=== PATIENT | male | born 1960 | race Caucasian/White ===

== ENCOUNTER 2016-10-24 10:50 | Emergency (ER) | payer OTHER ==
[2016-10-24 10:51] VITALS: BMI 25.9
[2016-10-24 11:22] LABS: AUTOMATED BASOPHIL 0.9 % (0-2); AUTOMATED EOSINOPHIL 1.2 % (0-5); AUTOMATED LYMPH 28.5 % (17-44); AUTOMATED MONOCYTE 7.9 % (3-10); AUTOMATED NEUTROPHIL 61.5 % (45-76); MPV 7.5 fL (7.4-10.4)
[2016-10-24 11:29] VITALS: TEMP 98.6
[2016-10-24 11:38] LABS: BLOOD UREA NITROGEN 10 MG/DL (9-20); CALC CORRECTED 8.5 MG/DL (8.4-10.2); CALCIUM 8.4 MG/DL (8.4-10.2); CALCULATED OSMOLALITY 270 MOs/Kg (270-290); CHLORIDE 106 mEq/L (98-107); GLUCOSE 93 MG/DL (70-99); SODIUM LEVEL 141 mEq/L (137-146); TOTAL PROTEIN 6.8 G/DL (6.3-8.2)
[2016-10-24 11:41] LABS: PARTIAL THROMB. TIME 30.7 SEC (22-35); PT-INR 1.1
[2016-10-24 11:51] LABS: WBC/URINE TNTC (0-2)
[2016-10-24] MEDS ORDERED: DIPHENHYDRAMINE 50 MG/ML VIAL IV ONE (11:56)
[2016-10-24] MEDS ORDERED: DEXAMETHASONE PF 10 MG/1 ML VIAL IV ONE (11:56)
[2016-10-24] MEDS ORDERED: METOCLOPRAMIDE 10 MG/2 ML VIAL IV ONE (11:56)
--- NOTE | 2016-10-24 11:58 | EDPRACDOC ---
- General Information Chief Complaint: Chest Pain Stated Complaint: CHEST PAIN Time Seen by Provider: 10/24/16 11:44 Information Source: Patient Mode of Arrival: Wheelchair Home Medications: Home Medications Glipizide [Glipizide ER] 10 mg PO BID 12/21/15 Sitagliptin Phos/Metformin HCl [Janumet Xr 100-1,000 mg Tablet] 1 each PO .QEVENING W/MEAL 12/21/15 Pioglitazone HCl [Actos] 15 mg PO DAILY 10/24/16 Sulfamethoxazole/Trimethoprim [Bactrim Ds Tablet] 1 tab PO BID #10 tab 10/24/16 Allergies/Adverse Reactions: Allergies Allergy/AdvReac Type Severity Reaction Status Date / Time codeine [Codeine] Allergy Mild Nausea/Vomi Verified 10/24/16 09:28 ting - History of 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 PT WAS GETTING IV FLUIDS FOR POSSIBLE DEHYDRATION. PT HAS HEADACHE THAT STARTED A COUPLE OF DAYS AGO. PAIN SEVERE. + N/V. PT FEELS LIKE A WET BLANKET IS ON CHEST. ED Past Medical History - Patient Medical History Neurological History: Denies: Cerebrovascular Accident, Seizures Cardiac History: Denies: Coronary Artery Disease, Atrial Fibrillation Respiratory History: Denies: Asthma, COPD GI/ History: Denies: Renal Disease, Gastroesophageal Reflux Musculoskeletal History: Denies: Arthritis, Osteoarthritis Psychological History: Denies: Depression, Anxiety Systemic History: Reports: Diabetes. Denies: Cancer, Anemia - Family Medical History Reports: Hypertension (aunt, uncle), Diabetes (aunt and uncles), Cancer (father prostate cancer), Stroke (father). Denies: Cardiac Disorders - Social Medical History Smoking Status: Former smoker - Physical Exam Last recorded Vital Signs: Last Vital Signs Temp 98.6 F 10/24/16 11:00 Pulse 74 10/24/16 11:00 Resp 18 10/24/16 11:00 BP 144/76 10/24/16 11:00 Pulse Ox 98 10/24/16 11:00 Oxygen Pulse Oxygen Saturation 98 O2 Device Oxygen Flow Rate Fraction of Inspired Oxygen ( FIO2) - Action ASA given in the ED: Yes - Re-evaluation Re-evaluation 1 Re-evaluation Time: 13:39 feeling better - Results 10/24/16 11:08 10/24/16 11:08 WBC 6.7 xk/uL (3.8-10.8) 10/24/16 11:08 RBC 4.79 xM/uL (4.70-6.10) 10/24/16 11:08 Hgb 13.6 g/dL (14.0-18.0) L 10/24/16 11:08 Hct 40.8 % (42-52) L 10/24/16 11:08 MCV 85 fL (80-94) 10/24/16 11:08 MCH 28.4 pg (27-32) 10/24/16 11:08 MCHC 33.3 g/dl (33-36) 10/24/16 11:08 RDW 14.2 % (11.5-14.5) 10/24/16 11:08 Plt Count 215 xk/uL (130-400) 10/24/16 11:08 MPV 7.5 fL (7.4-10.4) 10/24/16 11:08 Neut % (Auto) 61.5 % (45-76) 10/24/16 11:08 Lymph % (Auto) 28.5 % (17-44) 10/24/16 11:08 [place] % (Auto) 7.9 % (3-10) 10/24/16 11:08 Eos % (Auto) 1.2 % (0-5) 10/24/16 11:08 Baso % (Auto) 0.9 % (0-2) 10/24/16 11:08 Absolute Neuts (auto) 4.09 xk/uL (1.7-8.2) 10/24/16 11:08 Absolute Lymphs (auto) 1.88 xk/uL (0.65-4.75) 10/24/16 11:08 PT 11.2 SEC (9.2-11.2) 10/24/16 11:08 INR 1.1 10/24/16 11:08 APTT 30.7 SEC (22-35) 10/24/16 11:08 Sodium 141 mEq/L (137-146) 10/24/16 11:08 Potassium 3.4 mEq/L (3.5-5.1) L 10/24/16 11:08 Chloride 106 mEq/L (98-107) 10/24/16 11:08 Carbon Dioxide 23 mMOL/L (22-33) 10/24/16 11:08 Anion Gap 15 mEq/L (8-16) 10/24/16 11:08 BUN 10 MG/DL (9-20) 10/24/16 11:08 Creatinine 0.70 MG/DL (0.66-1.25) 10/24/16 11:08 Estimated GFR (MDRD) > 60 mL/min (>=60) 10/24/16 11:08 Glucose 93 MG/DL (70-99) 10/24/16 11:08 Calculated Osmolality 270 MOs/Kg (270-290) 10/24/16 11:08 Calcium 8.4 MG/DL (8.4-10.2) 10/24/16 11:08 Corrected Calcium 8.5 MG/DL (8.4-10.2) 10/24/16 11:08 Total Bilirubin 0.6 MG/DL (0.2-1.3) 10/24/16 11:08 AST 12 IU/L (17-59) L 10/24/16 11:08 ALT 26 IU/L (21-72) 10/24/16 11:08 Alkaline Phosphatase 45 IU/L (38-126) 10/24/16 11:08 Total Protein 6.8 G/DL (6.3-8.2) 10/24/16 11:08 Albumin 3.9 G/DL (3.5-5.0) 10/24/16 11:08 Lab Results 10/24/16 10/24/16 10/24/16 11:08 11:08 11:08 WBC 6.7 RBC 4.79 Hgb 13.6 L Hct 40.8 L MCV 85 MCH 28.4 MCHC 33.3 RDW 14.2 Plt Count 215 MPV 7.5 Neut % (Auto) 61.5 Lymph % (Auto) 28.5 [place] % (Auto) 7.9 Eos % (Auto) 1.2 Baso % (Auto) 0.9 Absolute Neuts (auto) 4.09 Absolute Lymphs (auto) 1.88 PT 11.2 INR 1.1 APTT 30.7 Sodium 141 Potassium 3.4 L Chloride 106 Carbon Dioxide 23 Anion Gap 15 BUN 10 Creatinine 0.70 Estimated GFR (MDRD) > 60 Glucose 93 Calculated Osmolality 270 Calcium 8.4 Corrected Calcium 8.5 Total Bilirubin 0.6 AST 12 L ALT 26 Alkaline Phosphatase 45 Total Protein 6.8 Albumin 3.9 Laboratory Results - last 24 hr 10/24/16 10/24/16 10/24/16 11:08 11:08 11:08 WBC 6.7 RBC 4.79 Hgb 13.6 L Hct 40.8 L MCV 85 MCH 28.4 MCHC 33.3 RDW 14.2 Plt Count 215 MPV 7.5 Neut % (Auto) 61.5 Lymph % (Auto) 28.5 [place] % (Auto) 7.9 Eos % (Auto) 1.2 Baso % (Auto) 0.9 Absolute Neuts (auto) 4.09 Absolute Lymphs (auto) 1.88 PT 11.2 INR 1.1 APTT 30.7 Sodium 141 Potassium 3.4 L Chloride 106 Carbon Dioxide 23 Anion Gap 15 BUN 10 Creatinine 0.70 Estimated GFR (MDRD) > 60 Glucose 93 Calculated Osmolality 270 Calcium 8.4 Corrected Calcium 8.5 Total Bilirubin 0.6 AST 12 L ALT 26 Alkaline Phosphatase 45 Total Protein 6.8 Albumin 3.9 Laboratory Results 10/24/16 11:08 10/24/16 11:08 Decision Time to Discharge: 13:34 - Departure Yes I personally saw and evaluated the patient. Disposition: Home Condition: Stable Final Diagnosis: UTI (urinary tract infection) Qualifiers: Urinary tract infection type: acute cystitis Hematuria presence: without hematuria Qualified Code(s): N30.00 - Acute cystitis without hematuria Headache Qualifiers: Headache type: unspecified Headache chronicity pattern: acute headache Intractability: not intractable Qualified Code(s): R51 - Headache Chest pain Qualifiers: Chest pain type: unspecified Qualified Code(s): R07.9 - Chest pain, unspecified Instructions: Chest Pain (ED), Urinary Tract Infection in Men (ED), Chest Wall Pain, Headache Education/Counseling Given To: Patient Education/Counseling Given Regarding: Diagnosis Referrals: Deysi Collins MD [Primary Care Provider] - One Week Prescriptions: Sulfamethoxazole/Trimethoprim [Bactrim Ds Tablet] 1 tab PO BID #10 tab
[2016-10-24 11:59] LABS: NITRITE/URINE NEG (NEGATIVE); URINE OCCULT BLOOD 1+ (NEG/TRACE)
[2016-10-24 12:02] LABS: LEUKOCYTES/URINE 2+ (NEGATIVE)
--- NOTE | 2016-10-24 12:07 | DIRPT ---
CLINICAL DATA: Chest pain, presumed cardiac EXAM: PORTABLE CHEST 1 VIEW COMPARISON: 12/21/2015 FINDINGS: Normal heart size and mediastinal contours. Bronchitic markings at the bases are stable. No acute infiltrate or edema. No effusion or pneumothorax. IMPRESSION: Stable exam. No evidence of acute disease. Electronically Signed By: Talon Brooks M.D. On: 10/24/2016 12:04
--- NOTE | 2016-10-24 13:07 | DIRPT ---
CLINICAL DATA: Headache for 2 days with nausea and vomiting. EXAM: CT HEAD WITHOUT CONTRAST TECHNIQUE: Contiguous axial images were obtained from the base of the skull through the vertex without intravenous contrast. COMPARISON: 07/15/2011 FINDINGS: Skull and Sinuses:Negative for fracture or destructive process. Sub cm sclerotic focus in the high left parietal bone is stable. The visualized mastoids, middle ears, and imaged paranasal sinuses are clear. Visualized orbits: Negative. Brain: Normal. No evidence of acute infarction, hemorrhage, hydrocephalus, or mass lesion/mass effect. IMPRESSION: Negative and stable head CT. Electronically Signed By: Talon Brooks M.D. On: 10/24/2016 13:05
[2016-10-24 13:38] VITALS: BP 137/72; PULSE 78
[2016-10-24] MEDS ORDERED: ASPIRIN (CHEWABLE) 81 MG TAB PO ONE (13:38)
[2016-10-24] MEDS: TRIMETHOPRIM-SULFAMETHOXAZOLE TAB PO ONE ×2 (13:44→13:45)
== END 2016-10-24 13:50 | disposition home or self-care (01) ==
LOC: ED 10:50
DX: N30.00 Acute cystitis without hematuria (principal); R51 Headache
CPT/HCPCS: 36415; 70450; 71010; 80053; 81001; 83880; 84484; 85025; 85610; 85730; 87077; 87086; 87186; 93005; 96374; 96375; 99284; J1100; J1200; J2765; J3490

== ENCOUNTER 2016-10-29 08:00 | Emergency (ER) | payer OTHER ==
[2016-10-29 08:00] VITALS: BMI 25.9
[2016-10-29 08:14] VITALS: TEMP 98.5
[2016-10-29] MEDS ORDERED: MORPHINE 4 MG/ML INJECTION IV ONE (08:44)
[2016-10-29] MEDS ORDERED: ONDANSETRON HCL 4 MG/2 ML VIAL IV STA (08:44)
--- NOTE | 2016-10-29 08:45 | EDPRACDOC ---
- General Chief Complaint: Head Injury Stated Complaint: FALL (HEAD INJURY) Time Seen by Provider: 10/29/16 08:31 Information Source: Patient, Family - History of Present Illness Onset: yesterday HPI: PT PRESENTS AFTER FALL W/ SYNCOPE AND HEAD INJURY YESTERDAY MORNING. FOUND ON THE GROUND BY HIS . HE HAS HAD PERSISTENT HEADACHE SINCE. Pain Severity: Reports: Moderate (DIFFUSE HEADACHE) Injuries/Pain Location: Reports: head Reason for Fall: Reports: unknown Loss of Consciousness: unsure Associated Symptoms (Fall): Reports: confusion, headache, nausea/vomiting Allergies/Adverse Reactions: Allergies codeine [Codeine] Allergy (Mild, Verified 10/29/16 08:11) Nausea/Vomiting Home Medications: Ambulatory Orders Glipizide [Glipizide ER] 10 mg PO BID 12/21/15 Sitagliptin Phos/Metformin HCl [Janumet Xr 100-1,000 mg Tablet] 1 each PO .QEVENING W/MEAL 12/21/15 Pioglitazone HCl [Actos] 15 mg PO DAILY 10/24/16 Sulfamethoxazole/Trimethoprim [Bactrim Ds Tablet] 1 tab PO BID #10 tab 10/24/16 Ondansetron HCl [Zofran] 4 mg PO Q6H PRN #15 tab 10/29/16 Oxycodone HCl [Roxicodone] 5 mg PO Q4-6H PRN #15 tablet 10/29/16 ED Past Medical History - History Reviewed Yes Nurses notes reviewed and agree except as marked - Patient Medical History Neurological History: Denies: Cerebrovascular Accident, Seizures Cardiac History: Denies: Coronary Artery Disease, Atrial Fibrillation Respiratory History: Denies: Asthma, COPD GI/ History: Denies: Renal Disease, Gastroesophageal Reflux Musculoskeletal History: Denies: Arthritis, Osteoarthritis Psychological History: Denies: Depression, Anxiety Systemic History: Reports: Diabetes. Denies: Cancer, Anemia - Family Medical History Reports: Hypertension (aunt, uncle), Diabetes (aunt and uncles), Cancer (father prostate cancer), Stroke (father). Denies: Cardiac Disorders - Social Medical History Smoking Status: Never smoker Lives With: Spouse Lives In: Home EDM Review of Systems - Review of Systems ROS Negative Except as Marked: Yes All systems reviewed and were negative except as marked Constitutional: negative: Fever Respiratory: negative: Shortness of Breath Cardiovascular: negative: Chest Pain Gastrointestinal: Nausea. negative: Pain, Vomiting Neurological: Headache Musculoskeletal: Back (LUMBAR), Neck - Physical Exam Constitutional: Alert Oriented to: Time, Person, Place Last recorded Vital Signs: Last Vital Signs Temp 98.5 F 10/29/16 08:11 Pulse 81 10/29/16 08:11 Resp 18 10/29/16 08:11 BP 126/73 10/29/16 08:11 Pulse Ox 97 10/29/16 08:11 Oxygen Pulse Oxygen Saturation 97 O2 Device Room Air Oxygen Flow Rate Fraction of Inspired Oxygen ( FIO2) - HEENT Head: negative: Deformity, Laceration Eye Exam: negative: Conjunctival Injection, Pale Conjunctiva Oropharynx: negative: Membranes Dry Nose: negative: Congestion, Discharge Neck: negative: Limited ROM ED Injury/Fall Exam - Physical Exam Head Injury: negative: active bleeding - Rulo Coma Score Best Eye Response (Rulo): (4) open spontaneously Best Verbal Response (Rulo): (5) oriented Best Motor Response (Rulo): (6) obeys commands Jabier Total: 15 - Results 10/29/16 08:35 10/29/16 08:35 POC Capillary Glucose 110 MG/DL (70-99) H 10/29/16 08:10 Lab Results 10/29/16 08:10 POC Capillary Glucose 110 H - EKG EKG #1 EKG Time: 08:21 -: Yes EKG interpreted by me Rate: bpm: 75 [place]: LAD Rhythm: NSR Block: None ST: Nonsp Decision Time to Discharge: 10:05 - Departure Yes I personally saw and evaluated the patient. Disposition: Home Condition: Stable Final Diagnosis: Concussion, Headache Instructions: Headache, Headache,FAQ's, Concussion (ED) Education/Counseling Given To: Patient, Family Member Education/Counseling Given Regarding: Diagnosis, Treatment, Prognosis, Follow Up Referrals: Jose Alfredo Anaya PA [Primary Care Provider] - Call for Appointment Prescriptions: Ondansetron HCl [Zofran] 4 mg PO Q6H PRN #15 tab PRN Reason: Nausea/Vomiting Oxycodone HCl [Roxicodone] 5 mg PO Q4-6H PRN #15 tablet PRN Reason: Breakthrough Pain
[2016-10-29 09:09] LABS: PARTIAL THROMB. TIME 30.1 SEC (22-35); PT-INR 1.1
[2016-10-29 09:12] LABS: AUTOMATED BASOPHIL 0.7 % (0-2); AUTOMATED EOSINOPHIL 1.4 % (0-5); AUTOMATED LYMPH 31.1 % (17-44); AUTOMATED MONOCYTE 6.4 % (3-10); AUTOMATED NEUTROPHIL 60.4 % (45-76); MPV 7.8 fL (7.4-10.4)
[2016-10-29 09:19] LABS: BLOOD UREA NITROGEN 16 MG/DL (9-20); CALCIUM 9.2 MG/DL (8.4-10.2); CALCULATED OSMOLALITY 270 MOs/Kg (270-290); CHLORIDE 104 mEq/L (98-107); CPK TOTAL WITH POSSIBLE MB 71 IU/L (55-170); GLUCOSE 122 MG/DL (70-99); SODIUM LEVEL 139 mEq/L (137-146); TOTAL PROTEIN 7.1 G/DL (6.3-8.2)
--- NOTE | 2016-10-29 09:42 | DIRPT ---
CLINICAL DATA: Fell yesterday afternoon. Found on the for. Headache and low back pain. EXAM: CHEST 2 VIEW COMPARISON: 10/24/2015 FINDINGS: Artifact overlies the chest. Heart size is normal. Mediastinal shadows are normal. The lungs are clear. The vascularity is normal. No effusions. No acute bone findings. IMPRESSION: No active cardiopulmonary disease. Electronically Signed By: Woody Melvin M.D. On: 10/29/2016 09:39
--- NOTE | 2016-10-29 09:46 | DIRPT ---
CLINICAL DATA: Fell yesterday afternoon, found by , does not know how he fell, lower back pain, initial encounter EXAM: LUMBAR SPINE - COMPLETE 4+ VIEW COMPARISON: None; correlation CT abdomen and pelvis 01/07/2016 FINDINGS: 5 [id number] lumbar vertebra. Suspect mild osseous demineralization. Vertebral body and disc space heights maintained. Tiny superior endplate spur L3. No acute fracture, subluxation or bone destruction. No spondylolysis. SI joints preserved. IMPRESSION: No acute lumbar spine abnormalities. Electronically Signed By: Woody Ames M.D. On: 10/29/2016 09:43
--- NOTE | 2016-10-29 10:01 | DIRPT ---
CLINICAL DATA: Status post fall, head injury, headache EXAM: CT HEAD WITHOUT CONTRAST CT CERVICAL SPINE WITHOUT CONTRAST TECHNIQUE: Multidetector CT imaging of the head and cervical spine was performed following the standard protocol without intravenous contrast. Multiplanar CT image reconstructions of the cervical spine were also generated. COMPARISON: 10/24/2016 FINDINGS: CT HEAD FINDINGS There is no evidence of mass effect, midline shift or extra-axial fluid collections. There is no evidence of a space-occupying lesion or intracranial hemorrhage. There is no evidence of a cortical-based area of acute infarction. The ventricles and sulci are appropriate for the patient's age. The basal cisterns are patent. Visualized portions of the orbits are unremarkable. There is a small left maxillary sinus mucous retention cyst. The osseous structures are unremarkable. CT CERVICAL SPINE FINDINGS The alignment is anatomic. The vertebral body heights are maintained. There is no acute fracture. There is 1-2 mm of retrolisthesis of C4 on C5. The prevertebral soft tissues are normal. The intraspinal soft tissues are not fully imaged on this examination due to poor soft tissue contrast, but there is no gross soft tissue abnormality. There is degenerative disc disease at C7-T1. The remainder the disc spaces are relatively well preserved. There is left uncovertebral degenerative change at C3-4 resulting in left foraminal narrowing. There is a broad-based disc bulge at C4-5 with bilateral uncovertebral degenerative changes and foraminal narrowing. There is right uncovertebral degenerative change at C5-6 resulting in mild right foraminal narrowing. There is bilateral uncovertebral degenerative change at C6-7, right greater than left resulting in right foraminal narrowing. The visualized portions of the lung apices demonstrate no focal abnormality. IMPRESSION: 1. No acute intracranial pathology. 2. No acute osseous injury of the cervical spine. Electronically Signed By: Vivian Hoyos On: 10/29/2016 09:58
[2016-10-29 10:21] VITALS: BP 127/74; PULSE 60
== END 2016-10-29 10:21 | disposition home or self-care (01) ==
LOC: ED 08:00
DX: S06.0X9A Concussion with loss of consciousness of unspecified duration, initial encounter (principal); W19.XXXA Unspecified fall, initial encounter; Y93.9 Activity, unspecified
CPT/HCPCS: 36415; 70450; 71020; 72110; 72125; 80053; 82550; 82962; 84484; 85025; 85610; 85730; 93005; 96374; 96375; 99284; J2270; J2405

== ENCOUNTER 2016-11-10 16:03 | Inpatient (IN) | payer OTHER ==
[2016-11-10 16:04] VITALS: BMI 25.9
--- NOTE | 2016-11-10 17:02 | DIRPT ---
CLINICAL DATA: Sepsis. EXAM: PORTABLE CHEST 1 VIEW COMPARISON: 10/29/2016. FINDINGS: Mediastinum hilar structures normal. Stable cardiomegaly. No focal infiltrate. No pleural effusion or pneumothorax. No acute bony abnormality. IMPRESSION: 1. Stable cardiomegaly. 2. No acute pulmonary disease. Electronically Signed By: Myron Allen On: 11/10/2016 17:00
[2016-11-10 17:26] LABS: AUTOMATED BASOPHIL 0.4 % (0-2); AUTOMATED EOSINOPHIL 0.3 % (0-5); AUTOMATED LYMPH 10.4 % (17-44); AUTOMATED MONOCYTE 2.7 % (3-10); AUTOMATED NEUTROPHIL 86.2 % (45-76); MPV 8.1 fL (7.4-10.4)
[2016-11-10 17:42] LABS: PARTIAL THROMB. TIME 22.4 SEC (22-35); PT-INR 1.2
--- NOTE | 2016-11-10 17:46 | EDPRACDOC ---
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 CONFUSED AND LETHARGIC. LAST SEEN IN THE AM, NORMAL AT THAT TIME. FAMILY DENIES DRUG OR ALCOHOL USE. ED Past Medical History - History Reviewed Information Unobtainable: Yes Unable to obtain information due to patient condition - Patient Medical History Neurological History: Denies: Cerebrovascular Accident, Seizures Cardiac History: Denies: Coronary Artery Disease, Atrial Fibrillation Respiratory History: Denies: Asthma, COPD GI/ History: Denies: Renal Disease, Gastroesophageal Reflux Musculoskeletal History: Denies: Arthritis, Osteoarthritis Psychological History: Denies: Depression, Anxiety Systemic History: Reports: Diabetes. Denies: Cancer, Anemia - Family Medical History Reports: Hypertension (aunt, uncle), Diabetes (aunt and uncles), Cancer (father prostate cancer), Stroke (father). Denies: Cardiac Disorders - Social Medical History Smoking Status: Never smoker EDM Review of Systems - Review of Systems ROS Unobtainable: Yes Review of systems cannot be obtained due to the patient's medical condition - Physical Exam Constitutional: Alert, Somnolent, Other (OPENS EYES AND RESPONDS TO CONVERSATION OF PEOPLE THAT HE KNOWS.) Oriented to: Person, Unable to Test Last recorded Vital Signs: Last Vital Signs Temp 97.9 F 11/10/16 16:27 Pulse 94 11/10/16 16:27 Resp 16 11/10/16 16:27 BP 148/74 11/10/16 16:27 Pulse Ox 95 11/10/16 16:27 Oxygen Pulse Oxygen Saturation 95 O2 Device Room Air Oxygen Flow Rate Fraction of Inspired Oxygen ( FIO2) - HEENT Head: Normal Eye Exam: negative: Pale Conjunctiva, Scleral Icterus Oropharynx: negative: Membranes Dry Nose: No Symptoms Reported Neck: Normal. negative: Edema, Limited ROM, Lymphadenopathy, Meningeal Signs - Respiratory/Cardiovascular Respiratory: Normal - CTA Cardiovascular: Normal - GI Auscultation: Normal Palpation: Normal Tenderness: Non tender - Musculoskeletal Back: Normal Extremities: Normal - Integumentary Skin: Cool, Dry - Neurologic Memory Impaired: Unable to Test Motor Function: Other (MOVES ALL 4 EST) Mood Description: Flat - Results 11/10/16 17:08 11/10/16 17:20 WBC 15.4 xk/uL (3.8-10.8) H 11/10/16 17:08 RBC 5.69 xM/uL (4.70-6.10) 11/10/16 17:08 Hgb 16.0 g/dL (14.0-18.0) 11/10/16 17:08 Hct 48.7 % (42-52) 11/10/16 17:08 MCV 86 fL (80-94) 11/10/16 17:08 MCH 28.1 pg (27-32) 11/10/16 17:08 MCHC 32.9 g/dl (33-36) L 11/10/16 17:08 RDW 14.6 % (11.5-14.5) H 11/10/16 17:08 Plt Count 166 xk/uL (130-400) 11/10/16 17:08 MPV 8.1 fL (7.4-10.4) 11/10/16 17:08 Neut % (Auto) 86.2 % (45-76) H 11/10/16 17:08 Lymph % (Auto) 10.4 % (17-44) L 11/10/16 17:08 [place] % (Auto) 2.7 % (3-10) L 11/10/16 17:08 Eos % (Auto) 0.3 % (0-5) 11/10/16 17:08 Baso % (Auto) 0.4 % (0-2) 11/10/16 17:08 Absolute Neuts (auto) 13.24 xk/uL (1.7-8.2) H 11/10/16 17:08 Absolute Lymphs (auto) 1.54 xk/uL (0.65-4.75) 11/10/16 17:08 Lab Results 11/10/16 17:08 WBC 15.4 H RBC 5.69 Hgb 16.0 Hct 48.7 MCV 86 MCH 28.1 MCHC 32.9 L RDW 14.6 H Plt Count 166 MPV 8.1 Neut % (Auto) 86.2 H Lymph % (Auto) 10.4 L [place] % (Auto) 2.7 L Eos % (Auto) 0.3 Baso % (Auto) 0.4 Absolute Neuts (auto) 13.24 H Absolute Lymphs (auto) 1.54 - EKG EKG #1 EKG Time: 16:31 -: Yes EKG interpreted by me Rate: bpm: 93 [place]: LAD Rhythm: NSR Block: None Hypertrophy: None ST: Normal - Diagnostic Imaging Chest Image interpreted by: Radiologist Patient Name: BERTIN KANG LOC: ED : 1960 AGE: 56 Order Date:11/10/16 Date of Service:03/21 Report # [id number] Ord Physician: Jesusita Osuna MD Exam # [id number] Emergency Physician: Jesusita Osuna MD Exam(s): [id number] RAD/DG CHEST PORTABLE CLINICAL DATA: Sepsis. EXAM: PORTABLE CHEST 1 VIEW COMPARISON: 10/29/2016. FINDINGS: Mediastinum hilar structures normal. Stable cardiomegaly. No focal infiltrate. No pleural effusion or pneumothorax. No acute bony abnormality. IMPRESSION: 1. Stable cardiomegaly. 2. No acute pulmonary disease. Electronically Signed By: Myron Allen On: 11/10/2016 17:00 Electronically Signed By: Myron Allen MD Electronically Signed Date/Time: 702 Dictate Date/Time: 11/10/16 165 Technologist: Mirlande Meyers Transcribed By: Will Transcribed Date/Time: 11/10/16 1700 Head Image interpreted by: Radiologist Patient Name: BERTIN KANG LOC: ED : 1960 AGE: 56 Order Date:11/10/16 Date of Service:03/21 Report # [id number] Ord Physician: Jesusita Osuna MD Exam # [id number] Emergency Physician: Jesusita Osuna MD Exam(s): [id number] CT/CT HEAD W/O CM CLINICAL DATA: Fall in bathroom today. Loss of consciousness. Altered mental status. Initial encounter. EXAM: CT HEAD WITHOUT CONTRAST TECHNIQUE: Contiguous axial images were obtained from the base of the skull through the vertex without intravenous contrast. COMPARISON: 10/29/2016 FINDINGS: No evidence of intracranial hemorrhage, brain edema, or other signs of acute infarction. No evidence of intracranial mass lesion or mass effect. No abnormal extraaxial fluid collections identified. Ventricles are normal in size. No skull abnormality identified. IMPRESSION: Negative noncontrast head CT. Electronically Signed By: Hussein Fletcher M.D. On: 11/10/2016 18:34 Electronically Signed By: Hussein Fletcher MD Electronically Signed Date/Time: [id number] Dictate Date/Time: 11/10/161830 Technologist: Ana Paula Orozco Transcribed By: Will Transcribed Date/Time: 11/10/16 1834 - Departure Disposition: Admit IP To This Hospital Final Diagnosis: Altered mental status, Urinary tract infection Instructions: Weakness (ED), Urinary Tract Infection in Men (ED), Dysuria Education/Counseling Given To: Patient, Family Member Education/Counseling Given Regarding: Diagnosis, Treatment, Prognosis Referrals: Jose Alfredo Anaya PA [Primary Care Provider] - One Week Prescriptions: No Action Sitagliptin Phos/Metformin HCl [Janumet Xr 100-1,000 mg Tablet] 1 tab PO .QEVENING W/MEAL Glipizide [Glipizide ER] 10 mg PO BID Pioglitazone HCl [Actos] 15 mg PO DAILY Decision to Admit Time: 19:47 Decision to admit date: 11/10/16 Decision to admit: from ED - Physician Consulted Hospitalist Time Called: 19:34 Provider Called: Jules Kelley Time Account Development Specialist Returned Call: 19:47
[2016-11-10 17:56] LABS: BLOOD UREA NITROGEN 12 MG/DL (9-20); CALCIUM 9.4 MG/DL (8.4-10.2); CALCULATED OSMOLALITY 275 MOs/Kg (270-290); CHLORIDE 105 mEq/L (98-107); CPK TOTAL WITH POSSIBLE MB 458 IU/L (55-170); GLUCOSE 94 mg/dL (70-99); SODIUM LEVEL 143 mEq/L (137-146); TOTAL PROTEIN 7.4 G/DL (6.3-8.2)
[2016-11-10 18:11] LABS: ETOH-MGDL < 10 mg/dL
--- NOTE | 2016-11-10 18:36 | DIRPT ---
CLINICAL DATA: Fall in bathroom today. Loss of consciousness. Altered mental status. Initial encounter. EXAM: CT HEAD WITHOUT CONTRAST TECHNIQUE: Contiguous axial images were obtained from the base of the skull through the vertex without intravenous contrast. COMPARISON: 10/29/2016 FINDINGS: No evidence of intracranial hemorrhage, brain edema, or other signs of acute infarction. No evidence of intracranial mass lesion or mass effect. No abnormal extraaxial fluid collections identified. Ventricles are normal in size. No skull abnormality identified. IMPRESSION: Negative noncontrast head CT. Electronically Signed By: Hussein Fletcher M.D. On: 11/10/2016 18:34
[2016-11-10 18:46] LABS: ALL NEG? NO
[2016-11-10 18:59] LABS: LEUKOCYTES/URINE 2+ (NEGATIVE); NITRITE/URINE POS (NEGATIVE); RBC/URINE TNTC (0-2); URINE OCCULT BLOOD 3+ (NEG/TRACE); WBC/URINE TNTC (0-2)
[2016-11-10 19:03] LABS: MDMA* NEG (NEGATIVE); METHAMPHETAMINES NEG (NEGATIVE); OXYCODONE NEG (NEGATIVE)
[2016-11-10] MEDS ORDERED: NS 1,000 ML IV ONE ×2 (19:33)
[2016-11-10] MEDS ORDERED: ALBUTEROL 0.083% 3 ML NEB NEB PRN (21:00)
[2016-11-10] MEDS ORDERED: Levofloxacin 500 mg/100 ml D5W 500 MG/100 ML RTU IV SCH (21:00)
[2016-11-10] MEDS ORDERED: GLUCOSE (ORAL GEL) 15 GM TUBE PO PRN (21:00)
[2016-11-10] MEDS ORDERED: ACETAMINOPHEN 325 MG/TAB TABLET PO PRN (21:00)
[2016-11-10] MEDS ORDERED: ONDANSETRON HCL 4 MG/2 ML VIAL IV PRN (21:00)
[2016-11-10] MEDS ORDERED: DEXTROSE 25 GM/50 ML PFS IV PRN (21:00)
[2016-11-10] MEDS ORDERED: GLUCAGON 1 MG VIAL SQ PRN (21:00)
--- NOTE | 2016-11-10 21:06 | HISTPHYS ---
- Chief Complaint Found down - History of Present Illness This is a 56-year-old male with history of type 2 diabetes who is being admitted to the hospital due to severe urinary tract infection, which was diagnosed here in the emergency department tonight after he was brought to the hospital via EMS after his found him down. 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 Similarly, she came home from work this afternoon, and found that he had wet the bed, does a trail of urine to the bathroom and she found him on the ground with a decreased level of consciousness at home. She mentions that when he last fell a couple of months ago, he was diagnosed with a concussion. He has some headache on a daily basis as result of that, but since the headache got worse he has been to his usual state of health. The patient is currently with some decreased level of conscious, but he denies any chest pain, headache or shortness of breath. Patient's provides rest of the history and review of systems, saying that he has not had any dizziness, lightheadedness, syncope, seizures, fevers, chills , shortness of breath, chest pain, nausea, vomiting, changes in bowel or bladder habits, changes in weight or any sick contacts. No new medications. - Medical History Cardiac History: Denies: Coronary Artery Disease, Atrial Fibrillation Respiratory History: Denies: Asthma, COPD GI/ History: Denies: Renal Disease, Gastroesophageal Reflux Musculoskeletal History: Denies: Arthritis, Osteoarthritis Systemic History: Reports: Diabetes. Denies: Cancer, Anemia Neurological History: Denies: Cerebrovascular Accident, Seizures Psychological History: Denies: Depression, Anxiety - Medictions/Allergies Allergies codeine [Codeine] Allergy (Mild, Verified 11/10/16 16:38) Nausea/Vomiting Home Medications Glipizide [Glipizide ER] 10 mg PO BID 12/21/15 Sitagliptin Phos/Metformin HCl [Janumet Xr 100-1,000 mg Tablet] 1 tab PO .QEVENING W/MEAL 12/21/15 Pioglitazone HCl [Actos] 15 mg PO DAILY 10/24/16 - Family History Reports: Hypertension (aunt, uncle), Diabetes (aunt and uncles), Cancer (father prostate cancer), Stroke (father). Denies: Cardiac Disorders - Social History Smoking Status: Never smoker - Review of Systems Yes All systems reviewed and were negative except as marked (And as mentioned in the history of present illness above.) - Physical Exam Vital Signs: Initial Vitals Temperature 97.9 F 11/10/16 16:27 Pulse Rate 94 11/10/16 16:27 Respiratory Rate 16 11/10/16 16:27 Blood Pressure 148/74 11/10/16 16:27 Pulse Oxygen Saturation 95 11/10/16 16:27 Exam: Decreased level of consciousness, but moving all extremities and able to answer questions appropriately. Not very clear on history, though. - HEENT Head: Normal (normocephalic,atraumatic, trachea midline) Eye: Normal (EOMI, Sclera white) Oropharynx: Normal (moist) Nose: No Symptoms Reported (without discharge or bleeding) Respiratory: Normal - CTA (Clear to auscultation bilaterally, no wheezing,rales or rhonchi. No use of accessory muscles) Cardiovascular: Normal (RRR, no murmurs, rubs or gallops) - GI Palpation: Normal (soft, non distended and nontender) - His groin was examined in the presence of his and nursing staff since he was recently treated for a groin abscess, the area is very benign without any signs of infection. - Musculoskeletal Extremities: Normal (normal tone, no cyanosis or edema) - Focused CV Perfusion Exam Vital Signs: Last Vital Signs Temp 97.8 F 11/10/16 17:45 Pulse 96 11/10/16 18:35 Resp 18 11/10/16 18:35 BP 144/83 11/10/16 18:35 Pulse Ox 95 11/10/16 18:35 - Lab Results Laboratory Tests 11/10/16 11/10/16 11/10/16 17:08 17:08 17:20 WBC 15.4 H Hgb 16.0 Hct 48.7 Plt Count 166 INR 1.2 Potassium 3.8 BUN 12 Creatinine 0.70 Creatine Kinase 458 H Troponin I < 0.01 Urine RBC Urine WBC Urine Bacteria 11/10/16 18:35 WBC Hgb Hct Plt Count INR Potassium BUN Creatinine Creatine Kinase Troponin I Urine RBC Tntc H Urine WBC Tntc H Urine Bacteria 4+ H - Diagnostic Findings Chest x-ray and CT scan of the head were obtained tonight, they are unremarkable for any acute processes. - Assessment (1) Urinary tract infection N39.0 - URINARY TRACT INFECTION, SITE NOT SPECIFIED Acute Patient was apparently treated as an outpatient earlier this month for urinary tract infection, on review of this culture data, he has pansensitive E coli. As such , he will be treated empirically with IV Rocephin, urine culture will be followed up on in this setting. He is a patient of Dr. bautista well, it is curious that this patient seems to be having recurrent urinary tract infection, consideration could be given for follow-up urological investigation to rule out any nidus of recurrent UTIs. This can likely be done as an outpatient if the patient improves clinically. (2) Altered mental status R41.82 - ALTERED MENTAL STATUS, UNSPECIFIED Acute Likely due to urinary tract infection. No intracranial pathology found (3) Diabetes mellitus E11.9 - TYPE 2 DIABETES MELLITUS WITHOUT COMPLICATIONS Acute Qualifiers: Diabetes mellitus type: type 2 Diabetes mellitus complication status: with skin complications Diabetes mellitus complication detail: with other skin complication Qualified Code(s): E11.628 - Type 2 diabetes mellitus with other skin complications Since the patient is quite altered I doubt that he will have any p.o. intake, I have discontinued his oral diabetic medications. Will check hemoglobin A1c, and place him on sliding scale insulin. Diabetic diet when eating.
[2016-11-10] MEDS: REGULAR INSULIN 100 UNITS/ML - 3 ML VIAL SQ SCH (22:11)
[2016-11-10] MEDS: CEFTRIAXONE 1 GM in D5W 100 ML IV SCH (22:15)
[2016-11-10] MEDS ORDERED: Vaccine Screening Complete SCH (23:00)
[2016-11-11] MEDS: NS 1,000 ML IV SCH ×4 (03:52→17:44)
[2016-11-11] MEDS: REGULAR INSULIN 100 UNITS/ML - 3 ML VIAL SQ SCH ×4 (06:07→21:32)
[2016-11-11 07:15] LABS: MPV 7.6 fL (7.4-10.4)
[2016-11-11 07:35] LABS: BLOOD UREA NITROGEN 11 MG/DL (9-20); CALCIUM 8.7 MG/DL (8.4-10.2); CALCULATED OSMOLALITY 270 MOs/Kg (270-290); CHLORIDE 109 mEq/L (98-107); GLUCOSE 98 mg/dL (70-99); SODIUM LEVEL 141 mEq/L (137-146)
--- NOTE | 2016-11-11 16:15 | GENMEDPROG ---
Chief Complaint: Still looks very ill. Weak and poorly ambulatory Notes Reviewed: Yes: Events from last night noted and discussed with Clinical Staff Current Medication List: Reviewed Currently: Reports: Abdominal Pain. Denies: Cough, Wheezing, TRIPP, SOB, Sputum, Nausea and Vomiting - Physical Examination Vital Signs and I&O: Last Vital Signs Temp 98 F 11/11/16 14:10 Pulse 92 11/11/16 14:10 Resp 18 11/11/16 14:10 BP 128/70 11/11/16 14:10 Pulse Ox 92 11/11/16 14:10 Oxygen Pulse Oxygen Saturation 92 O2 Device Room Air Oxygen Flow Rate Fraction of Inspired Oxygen ( FIO2) Intake & Output 11/08/16 11/09/16 11/10/16 11/11/16 23:59 23:59 23:59 23:59 Intake Total 1000 2460 Output Total 1575 Balance 1000 885 Patient's weight 96.814 kg General: Alert, Oriented x3, Cooperative, Mild distress. negative: Well appearing (Acutely ill-appearing) HEENT: Normal, PERRLA, EOMI, Anicteric Sclera Neck: Non-tender, Full range of motion, Normal Trachea alignment, Normal inspection. negative: JVD Lymphatics: Normal. negative: Adenopathy, Inguinal Erythema Respiratory: Normal - CTA (Clear to auscultation bilaterally, no wheezing,rales or rhonchi. No use of accessory muscles) Cardiovascular: Regular rate and rhythm, No Gallops,Rubs/Murmurs GI: Normal bowel sounds, Soft, Non tender, No hepatospenomegaly Extremities/Musculoskeletal: Normal pulses. negative: Tenderness, Swelling, Edema Skin: Warm,Dry and Intact, No rashes, No breakdown, No significant lesion Neurological: Normal Steady Gait, Normal speech, Strength at 5/5 X4 ext, Normal tone Psych/Mental Status: Appropriate, Normal Affect, Cooperative Lab/DI/Studies Reviewed: Laboratory Results - last 24 hr 11/10/16 11/10/16 11/10/16 17:08 17:08 17:08 WBC 15.4 H RBC 5.69 Hgb 16.0 Hct 48.7 MCV 86 MCH 28.1 MCHC 32.9 L RDW 14.6 H Plt Count 166 MPV 8.1 Neut % (Auto) 86.2 H Lymph % (Auto) 10.4 L [place] % (Auto) 2.7 L Eos % (Auto) 0.3 Baso % (Auto) 0.4 Absolute Neuts (auto) 13.24 H Absolute Lymphs (auto) 1.54 PT 12.2 H INR 1.2 APTT 22.4 Sodium Potassium Chloride Carbon Dioxide Anion Gap BUN Creatinine Estimated GFR (MDRD) Glucose POC Capillary Glucose Hemoglobin A1c Calculated Osmolality Lactic Acid 1.5 Calcium Total Bilirubin AST ALT Alkaline Phosphatase Creatine Kinase CK-MB (CK-2) Troponin I Total Protein Albumin Urine Color Urine Clarity Urine pH Ur Specific [place] Urine Protein Urine Glucose (UA) Urine Ketones Urine Occult Blood Urine Nitrite Urine Bilirubin Urine Urobilinogen Ur Leukocyte Esterase Urine RBC Urine WBC Urine WBC [place] Urine Bacteria Urine Opiates Screen Ur Oxycodone Screen Urine Methadone Screen Ur Barbiturates Screen Ur Tricyclics Screen Ur Phencyclidine Scrn Ur Amphetamines Screen U Methamphetamines Scrn Urine MDMA Screen U Benzodiazepines Scrn Urine Cocaine Screen Ur THC Screen Plasma/Serum Ethyl Alc 11/10/16 11/10/16 11/10/16 17:20 17:20 18:35 WBC RBC Hgb Hct MCV MCH MCHC RDW Plt Count MPV Neut % (Auto) Lymph % (Auto) [place] % (Auto) Eos % (Auto) Baso % (Auto) Absolute Neuts (auto) Absolute Lymphs (auto) PT INR APTT Sodium 143 Potassium 3.8 Chloride 105 Carbon Dioxide 26 Anion Gap 16 BUN 12 Creatinine 0.70 Estimated GFR (MDRD) > 60 Glucose 94 POC Capillary Glucose Hemoglobin A1c Calculated Osmolality 275 Lactic Acid Calcium 9.4 Total Bilirubin 0.8 AST 20 ALT 28 Alkaline Phosphatase 59 Creatine Kinase 458 H CK-MB (CK-2) 1.0 Troponin I < 0.01 Total Protein 7.4 Albumin 4.5 Urine Color Yellow Urine Clarity Cldy Urine pH 8.0 Ur Specific [place] 1.010 Urine Protein 2+ H Urine Glucose (UA) Neg Urine Ketones 1+ H Urine Occult Blood 3+ H Urine Nitrite Pos H Urine Bilirubin Neg Urine Urobilinogen <2.0 Ur Leukocyte Esterase 2+ H Urine RBC Tntc H Urine WBC Tntc H Urine WBC Clumps Present H Urine Bacteria 4+ H Urine Opiates Screen Ur Oxycodone Screen Urine Methadone Screen Ur Barbiturates Screen Ur Tricyclics Screen Ur Phencyclidine Scrn Ur Amphetamines Screen U Methamphetamines Scrn Urine MDMA Screen U Benzodiazepines Scrn Urine Cocaine Screen Ur THC Screen Plasma/Serum Ethyl Alc 11/10/16 11/10/16 11/10/16 18:35 21:45 22:07 WBC RBC Hgb Hct MCV MCH MCHC RDW Plt Count MPV Neut % (Auto) Lymph % (Auto) [place] % (Auto) Eos % (Auto) Baso % (Auto) Absolute Neuts (auto) Absolute Lymphs (auto) PT INR APTT Sodium Potassium Chloride Carbon Dioxide Anion Gap BUN Creatinine Estimated GFR (MDRD) Glucose POC Capillary Glucose 69 L Hemoglobin A1c Calculated Osmolality Lactic Acid Calcium Total Bilirubin AST ALT Alkaline Phosphatase Creatine Kinase CK-MB (CK-2) Troponin I < 0.01 Total Protein Albumin Urine Color Urine Clarity Urine pH Ur Specific [place] Urine Protein Urine Glucose (UA) Urine Ketones Urine Occult Blood Urine Nitrite Urine Bilirubin Urine Urobilinogen Ur Leukocyte Esterase Urine RBC Urine WBC Urine WBC [place] Urine Bacteria Urine Opiates Screen Neg Ur Oxycodone Screen Neg Urine Methadone Screen Neg Ur Barbiturates Screen Neg Ur Tricyclics Screen *positive* H Ur Phencyclidine Scrn Neg Ur Amphetamines Screen Neg U Methamphetamines Scrn Neg Urine MDMA Screen Neg U Benzodiazepines Scrn Neg Urine Cocaine Screen Neg Ur THC Screen Neg Plasma/Serum Ethyl Alc 11/11/16 11/11/16 11/11/16 05:28 06:25 06:25 WBC RBC Hgb Hct MCV MCH MCHC RDW Plt Count MPV Neut % (Auto) Lymph % (Auto) [place] % (Auto) Eos % (Auto) Baso % (Auto) Absolute Neuts (auto) Absolute Lymphs (auto) PT INR APTT Sodium 141 Potassium 3.9 Chloride 109 H Carbon Dioxide 25 Anion Gap 11 BUN 11 Creatinine 0.80 Estimated GFR (MDRD) > 60 Glucose 98 POC Capillary Glucose 107 H Hemoglobin A1c 6.8 H Calculated Osmolality 270 Lactic Acid Calcium 8.7 Total Bilirubin AST ALT Alkaline Phosphatase Creatine Kinase CK-MB (CK-2) Troponin I Total Protein Albumin Urine Color Urine Clarity Urine pH Ur Specific [place] Urine Protein Urine Glucose (UA) Urine Ketones Urine Occult Blood Urine Nitrite Urine Bilirubin Urine Urobilinogen Ur Leukocyte Esterase Urine RBC Urine WBC Urine WBC [place] Urine Bacteria Urine Opiates Screen Ur Oxycodone Screen Urine Methadone Screen Ur Barbiturates Screen Ur Tricyclics Screen Ur Phencyclidine Scrn Ur Amphetamines Screen U Methamphetamines Scrn Urine MDMA Screen U Benzodiazepines Scrn Urine Cocaine Screen Ur THC Screen Plasma/Serum Ethyl Alc 11/11/16 11/11/16 06:25 11:33 WBC 9.8 RBC 4.80 Hgb 13.6 L D Hct 41.3 L MCV 86 MCH 28.3 MCHC 32.8 L RDW 14.4 Plt Count 262 MPV 7.6 Neut % (Auto) Lymph % (Auto) [place] % (Auto) Eos % (Auto) Baso % (Auto) Absolute Neuts (auto) Absolute Lymphs (auto) PT INR APTT Sodium Potassium Chloride Carbon Dioxide Anion Gap BUN Creatinine Estimated GFR (MDRD) Glucose POC Capillary Glucose 184 H Hemoglobin A1c Calculated Osmolality Lactic Acid Calcium Total Bilirubin AST ALT Alkaline Phosphatase Creatine Kinase CK-MB (CK-2) Troponin I Total Protein Albumin Urine Color Urine Clarity Urine pH Ur Specific [place] Urine Protein Urine Glucose (UA) Urine Ketones Urine Occult Blood Urine Nitrite Urine Bilirubin Urine Urobilinogen Ur Leukocyte Esterase Urine RBC Urine WBC Urine WBC [place] Urine Bacteria Urine Opiates Screen Ur Oxycodone Screen Urine Methadone Screen Ur Barbiturates Screen Ur Tricyclics Screen Ur Phencyclidine Scrn Ur Amphetamines Screen U Methamphetamines Scrn Urine MDMA Screen U Benzodiazepines Scrn Urine Cocaine Screen Ur THC Screen Plasma/Serum Ethyl Alc - Assessment (1) Urinary tract infection Acute N39.0 - URINARY TRACT INFECTION, SITE NOT SPECIFIED Qualifiers: Urinary tract infection type: acute cystitis Hematuria presence: without hematuria Qualified Code(s): N30.00 - Acute cystitis without hematuria Comment/Plan: Treated earlier in the month for E coli. Continues to have E coli in his urine. Highly suspicious for resistant infection. Continue IV antibiotics, IV fluids and supportive care (2) Altered mental status Acute R41.82 - ALTERED MENTAL STATUS, UNSPECIFIED Qualifiers: Altered mental status type: unspecified Qualified Code(s): R41.82 - Altered mental status, unspecified Comment/Plan: Likely due to urinary tract infection. No intracranial pathology found. More alert and oriented today though still appears acutely ill (3) Concussion Acute S06.0X9A - CONCUSSION W LOSS OF CONSCIOUSNESS OF UNSP DURATION, INIT Qualifiers: Encounter type: sequela Loss of consciousness presence/duration: without LOC Qualified Code(s): S06.0X0S - Concussion without loss of consciousness, sequela Comment/Plan: Found down at home. Supportive care and monitor. Head CT negative (4) Diabetes mellitus Acute E11.9 - TYPE 2 DIABETES MELLITUS WITHOUT COMPLICATIONS Qualifiers: Diabetes mellitus type: type 2 Diabetes mellitus complication status: with skin complications Diabetes mellitus complication detail: with other skin complication Qualified Code(s): E11.628 - Type 2 diabetes mellitus with other skin complications Comment/Plan: Continue Accu-Cheks and sliding scale insulin (5) Hypokalemia Acute E87.6 - HYPOKALEMIA Comment/Plan: Replete with IV fluids Case Care Discussed with: Patient, Family, Nursing Staff, Physical Therapy, Resource Management, Web Coordinator
[2016-11-11] MEDS: ENOXAPARIN 40 MG/0.4 ML PFS SQ SCH (17:49)
[2016-11-11] MEDS: CEFTRIAXONE 1 GM in D5W 100 ML IV SCH (23:31)
[2016-11-12] MEDS: NS 1,000 ML IV SCH ×5 (01:00→23:53)
[2016-11-12] MEDS: REGULAR INSULIN 100 UNITS/ML - 3 ML VIAL SQ SCH ×4 (05:53→22:03)
[2016-11-12 06:27] LABS: AUTOMATED EOSINOPHIL 1.6 % (0-5); AUTOMATED LYMPH 38.4 % (17-44); AUTOMATED MONOCYTE 7.1 % (3-10); AUTOMATED NEUTROPHIL 51.9 % (45-76); MPV 7.9 fL (7.4-10.4)
[2016-11-12 06:37] LABS: BLOOD UREA NITROGEN 10 MG/DL (9-20); CALCIUM 8.6 MG/DL (8.4-10.2); CALCULATED OSMOLALITY 272 MOs/Kg (270-290); CHLORIDE 107 mEq/L (98-107); GLUCOSE 102 mg/dL (70-99); SODIUM LEVEL 142 mEq/L (137-146)
[2016-11-12] MEDS ORDERED: MORPHINE 2 MG/ML INJECTION IV PRN (14:05)
--- NOTE | 2016-11-12 16:32 | GENMEDPROG ---
Chief Complaint: Still does not feel well. Complains of mild left flank pain. No chest pain or shortness of breath. Notes Reviewed: Yes: Events from last night noted and discussed with Clinical Staff Current Medication List: Reviewed Currently: Reports: Abdominal Pain. Denies: Cough, Wheezing, TRIPP, SOB, Sputum, Nausea and Vomiting - Physical Examination Vital Signs and I&O: Last Vital Signs Temp 98.7 F 11/12/16 13:38 Pulse 83 11/12/16 13:38 Resp 20 11/12/16 13:38 BP 141/79 11/12/16 13:38 Pulse Ox 93 11/12/16 13:38 Oxygen Pulse Oxygen Saturation 93 O2 Device Room Air Oxygen Flow Rate Fraction of Inspired Oxygen ( FIO2) Intake & Output 11/09/16 11/10/16 11/11/16 11/12/16 23:59 23:59 23:59 23:59 Intake Total 1000 4471 1936 Output Total 2465 3225 Balance 1000 1995 -128 Patient's weight 96.814 kg 97.211 kg General: Alert, Oriented x3, Cooperative, Mild distress. negative: Well appearing (Acutely ill-appearing) HEENT: Normal, PERRLA, EOMI, Anicteric Sclera Neck: Non-tender, Full range of motion, Normal Trachea alignment, Normal inspection. negative: JVD Lymphatics: Normal. negative: Adenopathy, Inguinal Erythema Respiratory: Normal - CTA (Clear to auscultation bilaterally, no wheezing,rales or rhonchi. No use of accessory muscles) Cardiovascular: Regular rate and rhythm, No Gallops,Rubs/Murmurs GI: Normal bowel sounds, Soft, No hepatospenomegaly, Tenderness (Very minimal left abdominal tenderness. Small ecchymoses) Extremities/Musculoskeletal: Normal pulses. negative: Tenderness, Swelling, Edema Skin: Warm,Dry and Intact, No rashes, No breakdown, No significant lesion Neurological: Normal Steady Gait, Normal speech, Strength at 5/5 X4 ext, Normal tone Psych/Mental Status: Appropriate, Normal Affect, Cooperative Lab/DI/Studies Reviewed: Laboratory Results - last 24 hr 11/10/16 11/11/16 11/11/16 18:35 16:22 21:10 WBC RBC Hgb Hct MCV MCH MCHC RDW Plt Count MPV Neut % (Auto) Lymph % (Auto) [place] % (Auto) Eos % (Auto) Baso % (Auto) Absolute Neuts (auto) Absolute Lymphs (auto) Sodium Potassium Chloride Carbon Dioxide Anion Gap BUN Creatinine Estimated GFR (MDRD) Glucose POC Capillary Glucose 74 142 H Calculated Osmolality Calcium Ur Random Microalbumin 463.3 11/12/16 11/12/16 11/12/16 05:04 05:45 05:45 WBC 7.1 RBC 4.70 Hgb 13.2 L Hct 40.2 L MCV 86 MCH 28.1 MCHC 32.8 L RDW 14.6 H Plt Count 236 MPV 7.9 Neut % (Auto) 51.9 Lymph % (Auto) 38.4 [place] % (Auto) 7.1 Eos % (Auto) 1.6 Baso % (Auto) 1.0 Absolute Neuts (auto) 3.62 Absolute Lymphs (auto) 2.70 Sodium 142 Potassium 4.5 Chloride 107 Carbon Dioxide 28 Anion Gap 12 BUN 10 Creatinine 0.80 Estimated GFR (MDRD) > 60 Glucose 102 H POC Capillary Glucose 107 H Calculated Osmolality 272 Calcium 8.6 Ur Random Microalbumin 11/12/16 11:01 WBC RBC Hgb Hct MCV MCH MCHC RDW Plt Count MPV Neut % (Auto) Lymph % (Auto) [place] % (Auto) Eos % (Auto) Baso % (Auto) Absolute Neuts (auto) Absolute Lymphs (auto) Sodium Potassium Chloride Carbon Dioxide Anion Gap BUN Creatinine Estimated GFR (MDRD) Glucose POC Capillary Glucose 124 H Calculated Osmolality Calcium Ur Random Microalbumin - Assessment (1) Urinary tract infection Acute N39.0 - URINARY TRACT INFECTION, SITE NOT SPECIFIED Qualifiers: Urinary tract infection type: acute cystitis Hematuria presence: without hematuria Qualified Code(s): N30.00 - Acute cystitis without hematuria Comment/Plan: Remains ill-appearing and still feels poorly. Urine culture with pansensitive E coli. Continue IV Rocephin. (2) Altered mental status Acute R41.82 - ALTERED MENTAL STATUS, UNSPECIFIED Qualifiers: Altered mental status type: unspecified Qualified Code(s): R41.82 - Altered mental status, unspecified Comment/Plan: Likely due to urinary tract infection. No intracranial pathology found. Appears alert and oriented. (3) Concussion Acute S06.0X9A - CONCUSSION W LOSS OF CONSCIOUSNESS OF UNSP DURATION, INIT Qualifiers: Encounter type: sequela Loss of consciousness presence/duration: without LOC Qualified Code(s): S06.0X0S - Concussion without loss of consciousness, sequela Comment/Plan: Found down at home. Supportive care and monitor. Head CT negative (4) Diabetes mellitus Acute E11.9 - TYPE 2 DIABETES MELLITUS WITHOUT COMPLICATIONS Qualifiers: Diabetes mellitus type: type 2 Diabetes mellitus complication status: with skin complications Diabetes mellitus complication detail: with other skin complication Qualified Code(s): E11.628 - Type 2 diabetes mellitus with other skin complications Comment/Plan: Continue Accu-Cheks and sliding scale insulin (5) Hypokalemia Acute E87.6 - HYPOKALEMIA Comment/Plan: Replete with IV fluids Case Care Discussed with: Patient, Family, Nursing Staff, Respiratory Therapy
[2016-11-12] MEDS: ENOXAPARIN 40 MG/0.4 ML PFS SQ SCH (17:21)
[2016-11-12] MEDS: CEFTRIAXONE 1 GM in D5W 100 ML IV SCH (22:32)
[2016-11-13] MEDS: NS 1,000 ML IV SCH ×2 (00:13→06:52)
[2016-11-13] MEDS: REGULAR INSULIN 100 UNITS/ML - 3 ML VIAL SQ SCH (06:28)
[2016-11-13 06:36] VITALS: BP 135/70; PULSE 84; TEMP 98.3
[2016-11-13 07:04] LABS: MPV 7.5 fL (7.4-10.4)
[2016-11-13 07:14] LABS: BLOOD UREA NITROGEN 10 MG/DL (9-20); CALCIUM 8.9 MG/DL (8.4-10.2); CALCULATED OSMOLALITY 271 MOs/Kg (270-290); CHLORIDE 107 mEq/L (98-107); GLUCOSE 120 mg/dL (70-99); SODIUM LEVEL 141 mEq/L (137-146)
--- NOTE | 2016-11-13 10:07 | PCM.DCS92 ---
- Final/Secondary Discharge Diagnosis (1) Urinary tract infection Acute N39.0 - URINARY TRACT INFECTION, SITE NOT SPECIFIED acute cystitis without hematuria N30.00 - Acute cystitis without hematuria Comment: Says much better today. No further pain or discomfort. Weak and tired but says overall better (2) Altered mental status Acute R41.82 - ALTERED MENTAL STATUS, UNSPECIFIED unspecified R41.82 - Altered mental status, unspecified Comment: Resolved. Back to baseline cognitive function (3) Concussion Inactive S06.0X9A - CONCUSSION W LOSS OF CONSCIOUSNESS OF UNSP DURATION, INIT sequela without LOC S06.0X0S - Concussion without loss of consciousness, sequela Comment: Found down at home. 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 E11.628 - Type 2 diabetes mellitus with other skin complications; Z79.4 - skilled nursing (current) use of insulin Comment: Continue Accu-Cheks and sliding scale insulin (5) Hypokalemia Acute E87.6 - HYPOKALEMIA Present on Admission: Yes Comment: Replete with IV fluids Discharge Disposition: Home Discharge Condition: Improved Cognitive Discharge Status: Unimpaired Fuctional Discharge Status: Independent Forms: Excuse Note Physician Follow up/Referrals: Javier Villanueva MD [Staff Physician] - 11/27/16 9:30 am (urinary tract infection) Jose Alfredo Anaya PA [Primary Care Provider] - 11/21/16 2:00 pm Home Medications / New Prescriptions: New Cefdinir [Omnicef] 300 mg PO BID #14 capsule Continue Sitagliptin Phos/Metformin HCl [Janumet Xr 100-1,000 mg Tablet] 1 tab PO .QEVENING W/MEAL Glipizide [Glipizide ER] 10 mg PO BID Pioglitazone HCl [Actos] 15 mg PO DAILY O2 Device: Room Air Additional Instructions: Arrive at Dr Villanueva's office at 9:30 for 10:00 appointment. Diet at Discharge: Heart Healthy, 2200 Calorie Activity: As Tolerated Call Office For: Worsening Symptoms - DC Summary Notes Hospital Course Note:: Discharge summary on patient named BERTIN KANG admitted to [facility] on 11/10/16 by Jules Kelley MD. Date of discharge is []. Mr. Kang is a 56-year-old white male with history of diabetes mellitus and penile abscess approximately 1 year ago who presented to the hospital after being found down and lethargic. Evaluation emergency room was only notable for urinary tract infection. Head CT and blood work were generally within normal limits. Given the mental status changes and urinary tract infection he was admitted to the hospital. He was started on IV fluids, IV Rocephin and monitored closely. He apparently had been seen in the emergency room couple weeks ago and diagnosed with a urinary tract infection at that time and placed on Cipro. His urine culture did come back with barger sensitive E coli. Over the course of 24 hours he improved significantly over the last couple days he has been more more alert and interactive. On the day of discharge she states he feels better and is back to his baseline. His labs and vitals are normal and at this point has reached maximal hospital benefit and is stable for discharge. Given his urinary tract infection and recurrent symptoms will have him follow up with Dr. Villanueva with Urology after discharge Total Time: 45 minutes - Physical Exam Vital Signs: Last Vital Signs Temp 98.3 F 11/13/16 06:36 Pulse 84 11/13/16 06:36 Resp 18 11/13/16 06:36 BP 135/70 11/13/16 06:36 Pulse Ox 94 11/13/16 06:36 Oxygen Pulse Oxygen Saturation 94 O2 Device Room Air Oxygen Flow Rate Fraction of Inspired Oxygen ( FIO2) Constitutional: No apparent distress, Alert, Well nourished, Well appearing Oriented to: Time, Person, Place - HEENT Head: Normal (normocephalic,atraumatic, trachea midline) Eye: Normal (EOMI, Sclera white) Oropharynx: Normal (moist) Nose: No Symptoms Reported (without discharge or bleeding) - Respiratory/Cardiovascular Respiratory: Normal - CTA (Clear to auscultation bilaterally, no wheezing,rales or rhonchi. No use of accessory muscles) Cardiovascular: Normal - GI Auscultation: Normal Palpation: Normal (soft, non distended and nontender) Tenderness: Non tender - Musculoskeletal Back: Normal. negative: Abrasion Extremities: Normal (normal tone, no cyanosis or edema) - Integumentary Skin: Warm, Dry Lymphatics: Normal. negative: Adenopathy, Inguinal Erythema - Neurologic Memory Impaired: Normal Motor Function: Normal Cranial Nerve: Normal Cerebellar: Normal Mood Description: Flat Thought: Coherent Perception: Normal
== END 2016-11-13 11:39 | disposition home or self-care (01) | DRG 690 ==
LOC: ED 16:03 → MPS3 21:00
PROVIDERS: ADMIT Internal Medicine; ATTEND Hospitalist
DX: N30.00 Acute cystitis without hematuria (principal); E11.628 Type 2 diabetes mellitus with other skin complications; S06.0X9S Concussion with loss of consciousness of unspecified duration, sequela; R41.82 Altered mental status, unspecified; Z79.4 Long term (current) use of insulin; E87.6 Hypokalemia; Z88.5 Allergy status to narcotic agent; Z79.899 Other long term (current) drug therapy; B96.20 Unspecified Escherichia coli [E. coli] as the cause of diseases classified elsewhere; W19.XXXS Unspecified fall, sequela
CPT/HCPCS: 36415; 51798; 70450; 71010; 80048; 80053; 80307; 81001; 82043; 82550; 82553; 82962; 83036; 83605; 84484; 85025; 85027; 85610; 85730; 87040; 87077; 87086; 87186; 93005; 96360; 96361; 96372; 97161; 99283; G0237; J0696; J1650; J3490; J7060